=== PATIENT | female | born 1950 | race Caucasian/White ===

== ENCOUNTER 2019-04-08 02:06 | Outpatient (CLI) | payer OTHER, SELFPAY ==
--- NOTE | 2019-04-08 09:00 | DI.MAMMO_ITS ---
SYMPTOM/DIAGNOSIS: SCREENING Z12.31 MAMMOGRAMS: Mammograms were interpreted according to the usual protocol including computer analysis with CAD system, tomosynthesis and C view imaging. Comparison with prior examinations. Breast density category B. No suspicious masses or microcalcifications are seen. There is no definite evidence of malignancy. IMPRESSION: Category 1. Negative mammogram. Routine screening is recommended. Breast density category B. MQSA ASSESSMENT OF FINDINGS: Negative. Category 1. Patient will receive a letter notifying them of these results. BI-RADS category B. There are scattered areas of fibroglandular density.
== END 2019-04-08 02:26 ==
PROVIDERS: PCP Family Medicine; Visit Provider Family Medicine
DX: Z12.31 Encounter for screening mammogram for malignant neoplasm of breast (principal)
CPT/HCPCS: 77063; 77067

== ENCOUNTER 2021-06-04 01:41 | Outpatient (CLI) | payer OTHER, SELFPAY ==
--- NOTE | 2021-06-04 07:00 | DI.MAMMO_ITS ---
Exam(s) MAMMO SCREENING EXAM: MAMMO SCREENING CLINICAL HISTORY: screening,Z12.39 TECHNIQUE: Bilateral full field digital CC and MLO mammographic images were obtained with 3D tomosyn thesis and utilizing computer aided detection (CAD). COMPARISON: Available for comparison. FINDINGS: Masses/Architectural Distortion: None seen. Microcalcifications: No suspicious pleomorphic-type are seen. Skin Thickening/Nipple Retraction: None. IMPRESSION: 1. No significant interval change with no specific features of malignancy noted. 2. Unless there is more urgent need, screening mammography is recommended, as per [employer] guidelines. BI-RADS Category 1 - Negative Breast Density - Category B - Scattered areas of fibroglandular density Breast density category C or D implies that the patient has dense breast tissue. Dense breast tissue is very common and is not abnormal but dense breast tissue can make it harder to find cancer on a ma mmogram. Also, dense breast tissue may increase their breast cancer risk. This information about the result of the mammogram report was provided to the patient to raise their awareness. Use this report when you speak with the patient about their risks for breast cancer, which includes their family hist ory. At that time, you may recommend for more screening tests (Ultrasound or MRI) as they might be us eful based on their risk. A negative radiographic report should not delay biopsy if a dominant or clinically suspicious mass is present. Up to ten percent of cancers are not identified on mammography. A negative report may reinforce clinical impression. Adenosis and dense breasts may obscure an underlying neoplasm. False positive reports average 6 to 10%. Patient will receive a letter notifying them of these results.
== END 2021-06-04 02:01 ==
PROVIDERS: PCP Family Medicine; Visit Provider Family Medicine
DX: Z12.31 Encounter for screening mammogram for malignant neoplasm of breast (principal)
CPT/HCPCS: 77063; 77067

== ENCOUNTER 2022-09-05 00:11 | Outpatient (CLI) | payer MEDICARE, SELFPAY ==
--- NOTE | 2022-09-05 08:00 | DI.DEXA_ITS ---
Exam(s) XR DEXA BONE DENSITY W/WO KIKE EXAM: XR DEXA BONE DENSITY W/WO KIKE CLINICAL HISTORY: osteoporosis,M81.0 TECHNIQUE: [employer] C densitometer analysis of left hip, lumbar spine and left forearm. COMPARISON: 2004 through 2010 FINDINGS: Lateral view of the thoracic and lumbar spine shows exaggerated thoracic kyphosis. No definite compr ession fractures. Bone mineral density measurements of the lumbar spine correspond to a total T-score of -3.2, in the osteoporotic range. This represents a 11.8 percent decrease from 2010 and a 20.3 percent decrease co mpared with 2004. Bone mineral density measurements of the left hip correspond to a total T-score of -2.8. The femora l neck T-score is -2.9, in the osteoporotic range. This represents an 8.2 percent decrease compared to 2010 and a 13.5 percent decrease compared with 2004.. The left forearm bone mineral density measurements correspond to a T-score of the distal 3rd of -2.1 , in the osteopenic range. This represents a 12.3 percent decrease compared with 2010. The forearm was not analyzed per prior to that time. 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 Osteopenia of the forearm, also with decrease in density compared to prior.
== END 2022-09-05 00:31 ==
LOC: DI 00:11
PROVIDERS: PCP Family Medicine; Visit Provider Family Medicine
DX: M81.0 Age-related osteoporosis without current pathological fracture (principal); M85.88 Other specified disorders of bone density and structure, other site
CPT/HCPCS: 77080

== ENCOUNTER → 2023-07-02 02:02 | Outpatient (CLI) | payer MEDICARE, SELFPAY ==
--- NOTE | 2023-07-02 08:30 | DI.MAMMO_ITS ---
Exam(s) MAMMO SCREENING EXAM: MAMMO SCREENING CLINICAL HISTORY: screening,Z12.39 TECHNIQUE: Mammograms were interpreted according to the usual protocol including computer analysis w [employer] CAD system, tomosynthesis and C-view imaging. COMPARISON: 2014 through 2020 FINDINGS: The breasts are composed of scattered fibroglandular densities, Breast Density category B. No suspicious masses or suspicious microcalcifications are seen. No skin thickening or abnormal axillary lymph nodes are seen. There has been no significant change from prior exams. IMPRESSION: BI-RADS Category 1, Negative mammogram Yearly screening mammography is recommended. Breast Density - Category B, scattered fibroglandular densities. A negative radiographic report should not delay biopsy if a dominant or clinically suspicious mass is present. Up to ten percent of cancers are not identified on mammography. A negative report may reinforce clinical impression. Adenosis and dense breasts may obscure an underlying neoplasm. False positive reports average 6 to 10%. Patient will receive a letter notifying them of these results.
== END ==
PROVIDERS: PCP Family Medicine; Visit Provider Family Medicine
DX: Z12.31 Encounter for screening mammogram for malignant neoplasm of breast (principal)
CPT/HCPCS: 77063; 77067

== ENCOUNTER → 2024-03-22 00:52 | Outpatient (CLI) | payer MEDICARE, SELFPAY ==
--- NOTE | 2024-03-22 07:15 | DI.RAD_ITS ---
Exam(s) XR LUMBAR SPINE COMPLETE EXAM: XR LUMBAR SPINE COMPLETE CLINICAL HISTORY: LUMBAR PAIN, M54.50. TECHNIQUE: 2D digital imaging was performed. Five views. COMPARISON: CR XR DEXA BONE DENSITY W/WO KIKE from 09/05/2022 FINDINGS: BONES: No fracture or destructive lesion. Vertebral body heights are maintained. Sacrum obscured by stool and bowel gas. Facet hypertrophy identified greatest at L4-5 and L5-S1. Slight spondylolisthe sis at L4-5. DISKS: Severe narrowing L5-S1 disc space. Main disc spaces are maintained. ALIGNMENT: Slight spondylolisthesis at L4-5. Minimal scoliosis at thoracolumbar junction.. SOFT TISSUE: Normal. IMPRESSION: Degenerative changes greatest at L5-S1. DATA REPOSITORY: RADIATION DOSE DELIVERED:
--- NOTE | 2024-03-22 07:15 | DI.RAD_ITS ---
Exam(s) XR THORACIC SPINE COMPLETE EXAM: XR THORACIC SPINE COMPLETE CLINICAL HISTORY: LUMBAR AND THORACIC PAIN,M54.6. TECHNIQUE: 2D digital imaging was performed. Three views. COMPARISON: CR XR DEXA BONE DENSITY W/WO KIKE from 09/05/2022 CR XR LUMBAR SPINE COMPLETE from 03/22/2024 FINDINGS: BONES: Mild T11 compression fracture. This appears new when compared to prior DXA scan. The vertebr al bodies and posterior elements are unremarkable. ALIGNMENT: Increased thoracic kyphosis. DISKS: Narrowing of the anterior aspect of the discs and small endplate osteophytes. No significant scoliosis. SOFT TISSUE: Visualized lungs are clear. Heart size is normal. IMPRESSION: Mild T11 compression fracture. Thoracic kyphosis. DATA REPOSITORY: RADIATION DOSE DELIVERED:
== END ==
PROVIDERS: PCP Family Medicine; Visit Provider Family Medicine
DX: M54.50 Low back pain, unspecified (principal); M54.6 Pain in thoracic spine; S22.080A Wedge compression fracture of T11-T12 vertebra, initial encounter for closed fracture; M40.204 Unspecified kyphosis, thoracic region
CPT/HCPCS: 72072; 72110

== ENCOUNTER 2024-04-08 02:23 | Outpatient (CLI) | payer MEDICARE, SELFPAY ==
--- OUTSIDE RECORDS SUMMARY | 2024-04-08 02:46 | XMS_ITS | Encounter Summary ---
Author Organization [facility] Address [address] [place] [address] Care Team Providers Care Senior Manufacturing Supervisor Name Role Phone Unavailable Primary Care Provider Unavailabl e Encounter Details Date Type Department Care Team (Late st Contact Info) Description 12/30/2001 Results Only [facility] conversion [address] [place] [address] Vale Schofield MD [facility] [place] [address] Social History Tobacco Use Types Packs/Day Years Used Date Smoking Tobacco: Never Assessed Sex and Gender Information Value Date Recorded Sex Assigned at Not on file Gender Identity Not on file Sexual Orientation Not on file documented as of this encounter Plan of Treatment Not on file documented as of this encounter Procedures Procedure Name Priority Date/Time Associated Diagnosis Comments SURGICAL PATHOLOGY Routine 12/30/2001 0:00 EDT documented in this encounter Results * SURGICAL PATHOLOGY (12/30/2001 0:00 EDT) Pathology Report: SURGICAL PATHOLOGY REPORT Reports generated via electronic interface contain original data; however they are lacking the format of the original report. Caution should be taken when reading/interpreting unformatted reports. Name: ? TAINA LAND ? Accession #: ? [id number] ? : ? 1950 (Age: 51) ??F ? Collect Date: ? 12/30/2001 ? Location: ? [facility] ? Receive Date: ? 12/31/2001 ? Provider: VALE SCHOFIELD MD Copy to: COLTON GREEN MD ? Final Pathologic Diagnosis: A. ?Skin of hairline, right, curettage: 1. ? Seborrheic keratosis, inflamed. B. ?Skin of cheek, left, punch biopsy: ? 1. ?Seborrheic keratosis, pigmented. ??See comment. Comment: ? The punch biopsy from left cheek consists of a pigmented seborrheic keratosis that has associated lichenoid inflammation. ??The histologic features are suggestive of transition from a solar lentigo to seborrheic keratosis. There is no evidence of a melanocytic proliferation. ??(Dr. Vines)/dtl Microscopic Description: ? Sections from right hairline consist of multiple irregular fragments of skin. ??Orthohyperkeratosi s and focal parakeratosis thicken the stratum corneum. There is formation of horn pseudocysts. ??The epidermis is hyperplastic with acanthosis and papillomatosis. ??The keratinocytes have a basaloid appearance with squamous eddies in many areas. ??Within the dermis, there is a moderately dense lymphohistiocytic infiltrate. ??The infiltrate extends into the epidermis with concomitant vacuolar change and keratinocyte necrosis. Sections from left cheek consist of a punch biopsy of skin. ??The stratum corneum consists of a slightly thickened layer of compact orthokeratin. ??The epidermis is hyperplastic with elongate, thin, anastomosing rete ridges. ??Some of the rete are club shaped. ??The keratinocytes have abundant melanin pigment. The melanocytes are generally normal in number and distribution. ??There is prominent solar elastosis in the dermis. ??(Dr. Vines)/dtl Document reviewed and electronically signed by: Karen Vines MD Report ??Date: 01/03/2002 15:20 By the signature above, the attending physician certifies that he/she has personally conducted a gross and/or microscopic examination of the described specimens and rendered or confirmed the above diagnosis. Specimen(s) Received: A. ?R hairline curettage ??2 cm B. ?L cheek 3 mm punch bx Clinical History: ? A. Chivo K vs N. chivo, chivo keratosis. ??B. Fair skin, 5 yrs+ hx pigment change, 1.5 cm atrophic, sl. depressed area with three well-defined areas of increased pigment, R/O pigmented BCC, atypical nevus/freckle ? Gross Description: ? Received in formalin labelled Emery and #1 R are multiple pieces of yellow-white friable tissue which vary in size from 0.8 x 0.2 x 0.1 cm to 0.1 x 0.1 x 0.1 cm. ??The specimen is submitted entirely as (A). Received in formalin labelled Emery and #2 L cheek is a skin punch biopsy which measures 0.2 cm in diameter and 0.1 cm in thickness. ??The specimen is submitted entirely as (B). ??(Dr. Chaudhry)/[facility] End of Report [facility] 12/30/2001 12/31/2001 15: 21 EDT Vale Schofield MD PATHOLOGY ORDERABLES [facility] [address] [place] [address] documented in this encounter Visit Diagnoses Not on filedocumented in this encounter
--- OUTSIDE RECORDS SUMMARY | 2024-04-08 02:46 | XMS_ITS | Encounter Summary ---
Author Organization [facility] Address [address] [place] [address] Care Team Providers Care Court Attendant Name Role Phone Unavailable Primary Care Provider Unavailabl e Encounter Details Date Type Department Care Team (Late st Contact Info) Description 12/06/2007 Results Only [facility] conversion [address] [place] [address] Humera Chavez MD [address] [place] [phone] Social History Tobacco Use Types Packs/Day Years Used Date Smoking Tobacco: Never Assessed Sex and Gender Information Value Date Recorded Sex Assigned at Not on file Gender Identity Not on file Sexual Orientation Not on file documented as of this encounter Plan of Treatment Not on file documented as of this encounter Procedures Procedure Name Priority Date/Time Associated Diagnosis Comments HPV DETECTION, HIGH RISK TYPES Routine 12/06/2007 6:55 EDT CYTOPATHOLOGY Routine 12/06/2007 0:00 EDT documented in this encounter Results * HUMAN PAPILLOMA VIRUS DNA TEST (12/06/2007 6:55 EDT) Specimen Description Cervix, ThinPrep vial [facility] Result Negative for HPV types 16, 18, 31, 33, 35, 39, 45, 51, 52, 56, 58, 59, and 68. [facility] Report Status Final [id number] [facility] 12/06/2007 6:55 EDT 12/14/2007 6:55 EDT Humera Chavez MD MICROBIOLOGY - GENE RAL ORDERABLES [facility] [address] [place] [address] * CYTOPATHOLOGY (12/06/2007 0:00 EDT) Pathology Report: CYTOPATHOLOGY REPORT Reports generated via electronic interface contain original data; however they are lacking the format of the original report. Caution should be taken when reading/interpreti ng unformatted reports. Name: ? TAINA LAND ? Accession #: ? [id number] : ? 1950 (Age: 57) ??F ?Collect Date: ? 12/06/2007 Location: ? [facility] ? Receive Date: ? 12/08/2007 Provider: ?HUMERA CHAVEZ MD Copy to: ? Specimen/Source: ?ThinPrep Pap Test, Endocervix, processed on [employer] ThinPrep Imaging System, with manual evaluation Last Menstrual Period: ? Other: ? HPVDX - HPV testing requested regardless of diagnosis on current ThinPrep Pap test. ? SPECIMEN ADEQUACY ? Satisfactory for Evaluation - assessment of transformation zone component not applicable ( e.g. atrophy, vaginal sample, hysterectomy) GENERAL CATEGORIZATION ? Negative for Intraepithelial Lesion or Malignancy ? Document reviewed and electronically signed by: ? NABEEL New(ASCP) ? Report Date: ??12/13/2007 10:23 End of Report [facility] 12/06/2007 12/08/2007 Humera Chavez MD PATHOLOGY ORDERABLE S Performing Organization Address City/State/[facility] Co de Phone Number [facility] [address] [place] [address] documented in this encounter Visit Diagnoses Not on filedocumented in this encounter
--- OUTSIDE RECORDS SUMMARY | 2024-04-08 02:46 | XMS_ITS | Clinical Summary ---
Author Organization [facility] Address [address] [place] [address] Care Team Providers Care Community Service Director Name Role Phone Unknown, Provider Primary Care Provider [phone] Social History Tobacco Use Types Packs/Day Years Used Date Smoking Tobacco: Never Assessed Sex and Gender Information Value Date Recorded Sex Assigned at Not on file Gender Identity Not on file Sexual Orientation Not on file Plan of Treatment Health Maintenance Due Date Last Done Comments Hepatitis C Screen 1950 RSV Immunization ( o r 60+ Years) (1 - 1-dose 60+ series) 2008 Fall Risk Screening 2013 COVID-19 Vaccine ( season) 2023 Care Teams Community Service Director Relationship Specialty Start Date End Date Unknown, Provider, PCP - General 07/16/15
--- OUTSIDE RECORDS SUMMARY | 2024-04-08 02:46 | XMS_ITS | Clinical Summary ---
[place] [address] Care Team Providers Care Assistant Professor Of Economics Name Role Phone Humera Chavez MD Primary Care Provider [phone] Allergies No known active allergies Medications Medication Sig Dispensed Refills Start Date End Date Status CIS Free Text Med - [place]ap 12/16/2007 Active ascorbic acid (VITAMIN C) 500 mg tablet 12/16/2007 Active Cod Liver Oil Oil 12/16/2007 Active Social History Tobacco Use Types Packs/Day Years Used Date Smoking Tobacco: Never Assessed Sex and Gender Information Value Date Recorded Sex Assigned at Not on file Gender Identity Not on file Sexual Orientation Not on file Plan of Treatment Health Maintenance Due Date Last Done Comments CT Colonography 1950 Colonoscopy 1950 Colorectal Cancer Screening 1950 FIT DNA 1950 FIT 1950 Sigmoidoscopy (10 year) with FIT yearly 1950 Sigmoidoscopy 1950 Hepatitis C Screening 1966 Tdap adult 1967 Tetanus vaccine 1967 Zoster vaccine (1 of 2) 1998 Advance Directive 2003 Bone Density Scan 2013 Pneumoccocal Vaccine: 65+ (1 of 1 - PCV) 2013 Covid-19 Vaccine (1 - season) 2023 Influenza (Flu) vaccine (1 o f 1 - Influenza standard series) 05/08/2024 Care Teams Assistant Professor Of Economics Relationship Specialty Start Date End Date Humera Chavez MD [address] [place] [address] PCP - General 07/30/10
--- OUTSIDE RECORDS SUMMARY | 2024-04-08 02:46 | XMS_ITS | Encounter Summary ---
Author Organization [facility] Address [address] [place] [address] Care Team Providers Care Coil Winder Name Role Phone Unavailable Primary Care Provider Unavailabl e Encounter Details Date Type Department Care Team (Late st Contact Info) Description 12/03/2006 Results Only [facility] conversion [address] [place] [address] Humera Chavez MD [address] [place] [address] Social History Tobacco Use Types Packs/Day Years Used Date Smoking Tobacco: Never Assessed Sex and Gender Information Value Date Recorded Sex Assigned at Not on file Gender Identity Not on file Sexual Orientation Not on file documented as of this encounter Plan of Treatment Not on file documented as of this encounter Procedures Procedure Name Priority Date/Time Associated Diagnosis Comments CYTOPATHOLOGY Routine 12/03/2006 0:00 EDT documented in this encounter Results * CYTOPATHOLOGY (12/03/2006 0:00 EDT) Pathology Report: CYTOPATHOLOGY REPORT Reports generated via electronic interface contain original data; however they are lacking the format of the original report. Caution should be taken when reading/interpreti ng unformatted reports. Name: ? TAINA LAND ? Accession #: ? [id number] : ? 1950 (Age: 56) ??F ?Collect Date: ? 12/03/2006 Location: ? [facility] ? Receive Date: ? 12/07/2006 Provider: ?HUMERA CHAVEZ MD Copy to: ? Specimen/Source: ?ThinPrep Pap Test, Endocervix, processed on [employer] ThinPrep Imaging System, with manual evaluation Last Menstrual Period: ? 04/2001 Hormonal/Contracep tive Status: ? Yes Other: ? HPVA - HPV testing requested if ASC-US on the current ThinPrep Pap test. ? SPECIMEN ADEQUACY ? Satisfactory for Evaluation - assessment of transformation zone component not applicable ( e.g. atrophy, vaginal sample, hysterectomy) - scant squamous epithelial component GENERAL CATEGORIZATION ? Negative for Intraepithelial Lesion or Malignancy ? Document reviewed and electronically signed by: ? BREANNA Royal(ASCP) ? Report Date: ??12/09/2006 10:16 End of Report [facility] 12/03/2006 12/07/2006 Humera Chavez MD PATHOLOGY ORDERABLE S [facility] [address] [place] [address] documented in this encounter Visit Diagnoses Not on filedocumented in this encounter
--- OUTSIDE RECORDS SUMMARY | 2024-04-08 02:46 | XMS_ITS | Encounter Summary ---
Author Organization [facility] Address [address] [place] [address] Care Team Providers Care Detail Supervisor Name Role Phone Unavailable Primary Care Provider Unavailabl e Encounter Details Date Type Department Care Team (Late st Contact Info) Description 02/06/2011 Results Only [facility] [address] [place], [place] [id number] Humera Chavez MD [address] [place] [address] [address] [place] [address] Social History Tobacco Use Types Packs/Day Years Used Date Smoking Tobacco: Never Assessed Sex and Gender Information Value Date Recorded Sex Assigned at Not on file Gender Identity Not on file Sexual Orientation Not on file documented as of this encounter Plan of Treatment Not on file documented as of this encounter Procedures Procedure Name Priority Date/Time Associated Diagnosis Comments PAP TEST- RESULT ONLY Routine 02/06/2011 0:00 EDT documented in this encounter Results * PAP TEST- RESULT ONLY (02/06/2011 0:00 EDT) Pathology Report: CYTOPATHOLOGY REPORT ? Reports generated via electronic interface contain original data; ? however they are lacking the format of the original report. ? Caution should be taken when reading/interpreti ng unformatted reports. ? Name: ? NATHAN, TAINA ? Accession #: ? [id number] ? : ? 1950 (Age: 60) ??F ?Collect Date: ? 02/06/2011 ? Location: ? [facility] ? Receive Date: ? 02/07/2011 ? Provider: HUMERA M DOBBERTIN MD ? Copy to: ? Final Report ? SPECIMEN ADEQUACY ? Satisfactory for Evaluation ? - assessment of transformation zone component not applicable ( e.g. atrophy, ? vaginal sample, hysterectomy) ? GENERAL CATEGORIZATION ? Negative for Intraepithelial Lesion or Malignancy ? Menstural/Pregnanc y Status: ??Post Menopausal ? Specimen/Source: ??Pap Test, Endocervix, ThinPrep Imaging System with manual ? evaluation ? Document reviewed and electronically signed by: ? Kendra Tarango, SCT(ASCP) ? Report ??Date: 02/13/2011 14:48 ? HPV with Pap Test ? Date Ordered: ? 02/13/2011 ? Status: ?? Signed Out ?Date Complete: ? 02/14/2011 ? By: ??System Interface ? Date Reported: ? 02/14/2011 ? Interpretation ? RESULT: Quantity not sufficient. ? Credit Issued ? Comments ? Document reviewed and electronically signed by: ? System Interface ? Report date: 02/14/2011 ? By the signature above, the attending physician certifies that he/she has ? personally conducted a gross and/or microscopic examination of the described ? specimens and rendered or confirmed the above diagnosis. ? End of Report ? [facility] 02/06/2011 02/07/2011 Humera Chavez MD PATHOLOGY ORDERABLE S Performing Organization Address City/State/[facility] Co de Phone Number [facility] [address] [place] [address] documented in this encounter Visit Diagnoses Not on filedocumented in this encounter
--- OUTSIDE RECORDS SUMMARY | 2024-04-08 02:46 | XMS_ITS | Referral Summary ---
Author Organization [facility] Address [address] [place] [address] Care Team Providers Care Medicaid Analyst Name Role Phone Unknown, Provider Primary Care Provider [phone] Social History Tobacco Use Types Packs/Day Years Used Date Smoking Tobacco: Never Assessed Sex and Gender Information Value Date Recorded Sex Assigned at Not on file Gender Identity Not on file Sexual Orientation Not on file Plan of Treatment Not on file Care Teams Medicaid Analyst Relationship Specialty Start Date End Date Unknown, Provider, PCP - General 07/16/15
--- OUTSIDE RECORDS SUMMARY | 2024-04-08 02:46 | XMS_ITS | Encounter Summary ---
Author Organization Formerly [facility], 1928–1983 Address [facility] [place] [address] Care Team Providers Care Hobber Name Role Phone Humera Chavez MD Primary Care Provider Encounter Details Date Type Department Care Team (Late st Contact Info) Description 12/16/2007 Orders Only Dermatology at [address] [place] [id number] Hong Bradley MD [facility] [place] [address] Social History Tobacco Use Types Packs/Day Years Used Date Smoking Tobacco: Never Assessed Sex and Gender Information Value Date Recorded Sex Assigned at Not on file Gender Identity Not on file Sexual Orientation Not on file documented as of this encounter Plan of Treatment Not on file documented as of this encounter Procedures Procedure Name Priority Date/Time Associated Diagnosis Comments SURGICAL PATHOLOGY REPORT Routine 12/16/2007 4:04 PM EDT documented in this encounter Results * Surgical Pathology Report (12/16/2007 4:04 PM EDT) Surgical Pathology Report [id number] ? Location: 4M The signing pathologist has (i) examined the relevant preparation(s) for the specimen(s) and (ii) rendered or confirmed the diagnosis(es). . ?Pathology Surgical Pathology Final Report Clinical Information Specimen Submitted: A - Skin L Malar: shave Clinical History: Recurrence of dark lesion L cheek Clinical Diagnosis: Rich with inflammation vs dysplastic nevus Gross Description Labeled/Fixative : ? Labeled with the patient's name and medical record ?number, formalin. Qty/Size/Weight: ?Single variegated, yellow to chappell-brown, granular, and ?focally lobulated skin shave, 0.5 x 0.3 cm. ?Eccentrically there is a 0.15-cm focus of ?discoloration. Sections/Process ing: ??Bisected. ??(T1) aje/SHB Microscopic Description Slides reviewed, microscopic description not recorded. Diagnosis Left malar area, shave biopsy: ?? Fragment of keratin with a scant portion of superficial epidermis (see Comment). CR-0 12/17/07 JLK 12/18/07 Verified by: ? Tu Pace MD ?Dermatopatholo gist ?(Electronic Signature) The attending pathologist whose signature appears on this report has reviewed all diagnostic slides and has edited the gross and/or microscopic portion of the report in rendering the final pathologic diagnosis. Comment Only a scant portion of epidermis is available for evaluation. As such, a more specific diagnosis cannot be made. Re-biopsy may be considered if clinically indicated. ??Multiple step levels were reviewed. MAKAYLA FULLERIUM 12/16/2007 4:04 PM EDT Hong Bradley MD PATHOLOGY/CYTOLOGY ORDERABLES MAKAYLA DODGE documented in this encounter Visit Diagnoses Not on filedocumented in this encounter Care Teams Hobber Relationship Specialty Start Date End Date Humera Chavez MD [address] [place] [address] [address] [place] [address] PCP - General 07/30/10 documented as of this encounter
--- OUTSIDE RECORDS SUMMARY | 2024-04-08 02:46 | XMS_ITS | Encounter Summary ---
Author Organization [facility] Address [address] [place] [address] Care Team Providers Care Cat Skinner Name Role Phone Unknown, Provider Primary Care Provider Encounter Details Date Type Department Care Team (Late st Contact Info) Description 01/14/2016 Results Only [facility]- [facility] [phone] Humera Chavez MD [address] [place] [id number] Social History Tobacco Use Types Packs/Day Years [...] Diagnosis Comments PAP TEST- RESULT ONLY Routine 01/14/2016 0:00 EDT documented in this encounter Results * PAP TEST- RESULT ONLY (01/14/2016 0:00 EDT) Pathology Report: CYTOPATHOLOGY REPORT Reports generated via electronic interface contain original data; however they are lacking the format of the original report. Caution should be taken when reading/interpreti ng unformatted reports. Name: ? TAINA LAND ? Accession #: ? [id number] ? : ? 1950 (Age: 65) ??F ?Collect Date: ? 01/14/2016 ? Location: ? [facility] ? Receive Date: ? 01/15/2016 ? Provider: HUMERA CHAVEZ MD Copy to: ? Final Report SPECIMEN ADEQUACY ? Satisfactory for Evaluation - assessment of transformation zone component not applicable ( e.g. atrophy, vaginal sample, hysterectomy) GENERAL CATEGORIZATION ? Negative for Intraepithelial Lesion or Malignancy ?? Menstrual/Pregnanc y Status: ??Post Menopausal Hormonal/Contracep tive status: None Other: Promotions Manager Clinical/Treatment Hx - None Specimen/Source: ??Pap Test, Cervix/Endocervix, ThinPrep Imaging System with manual evaluation Document reviewed and electronically signed by: ? Polly Shah, BREANNA(ASCP) ? Report ??Date: 01/24/2016 12:53 HPV with Pap Test ? Date Ordered: ? 01/24/2016 ? Status: ?? Signed Out ?Date Complete: ? 01/28/2016 ? By: ??System Interface ? Date Reported: ? 01/28/2016 ? Interpretation RESULT: Negative for HPV. No E6 or E7 mRNA is detected from HPV types 16,18,31,33,35, 39,45,51,52,56,58, 59,66, and 68 by mis manager mediated amplification. Comments Document reviewed and electronically signed by: ? System Interface ? Report date: 01/28/2016 By the signature above, the attending physician certifies that he/she has personally conducted a gross and/or microscopic examination of the described specimens and rendered or confirmed the above diagnosis. End of Report [facility] 01/14/2016 01/15/2016 Humera Chavez MD PATHOLOGY ORDERABLE S [facility] [address] [place] [id number] documented in this encounter Visit Diagnoses Not on filedocumented in this encounter Care Teams Cat Skinner Relationship Specialty Start Date End Date Unknown, Provider, PCP - General 07/16/15 documented as of this encounter
[2024-04-08 12:58] LABS: ALT 24 U/L (14-59); AST 18 U/L (15-37); Albumin 3.4 g/dL (3.4-5.0); Alkaline Phosphatase 86 U/L (46-116); BUN 20 mg/dL (7-18); Bilirubin, Total 0.51 mg/dL (0.2-1.0); CREATININE 0.8 mg/dL (0.55-1.02); Calcium 8.9 mg/dL (8.5-10.1); Chloride 102 mmol/L (98-107); Estimated GFR 76.79 (mL/min/1.73m2); Glucose 89 mg/dL (74-106); Potassium 3.9 mmol/L (3.5-5.1); Sodium 139 mmol/L (136-145); TSH (W/Ref FT4) 4.09 uIU/mL (0.36-3.74); Total Protein 7.5 g/dL (6.4-8.2)
[2024-04-08 13:22] LABS: FREE T4 0.93 ng/dL (0.76-1.46); PHOSPHORUS 4.2 mg/dL (2.6-4.7)
[2024-04-08 18:25] LABS: Parathyroid Hormone,Intact 42 pg/mL (19-88)
[2024-04-11 13:02] LABS: Albumin 57.6 % (55.8-66.1); Albumin g/dL 4.1 g/dL (3.6-5.2); Total Protein 7.1 g/dL (6.3-8.2)
== END 2024-04-08 02:24 | disposition home or self-care (01) ==
LOC: LOS 02:24
PROVIDERS: PCP Family Medicine; Visit Provider Family Medicine
DX: M81.0 Age-related osteoporosis without current pathological fracture (principal); N18.9 Chronic kidney disease, unspecified; E03.9 Hypothyroidism, unspecified; S32.000A Wedge compression fracture of unspecified lumbar vertebra, initial encounter for closed fracture
CPT/HCPCS: 36415; 80053; 82306; 83970; 84100; 84165; 84439; 84443

== ENCOUNTER 2024-04-09 09:36 | Outpatient (REF) | payer MEDICARE, SELFPAY ==
[2024-04-10 09:42] LABS: Calcium Urine 5.2 mg/dL (See Note); Calcium Urine 24 hr 75 mg/24hr (100-300); Timed Urine Volume 1450 mL
[2024-04-10 09:45] LABS: Magnesium Random Urine 5.1 mg/dL (See Note); Timed Urine Volume 1450 mL
== END 2024-04-09 09:37 | disposition home or self-care (01) ==
LOC: LBN 09:36
PROVIDERS: PCP Family Medicine; Visit Provider Family Medicine
DX: M81.0 Age-related osteoporosis without current pathological fracture (principal); E03.9 Hypothyroidism, unspecified; N18.9 Chronic kidney disease, unspecified
CPT/HCPCS: 83735; 81050; 82340

== ENCOUNTER 2024-05-13 00:20 | Outpatient (CLI) | payer MEDICARE, SELFPAY ==
--- NOTE | 2024-05-13 08:30 | DI.RAD_ITS ---
Exam(s) XR HIP LT COMPLETE AP PELVIS EXAM: XR HIP LT COMPLETE AP PELVIS CLINICAL HISTORY: left hip pain,m25.552. TECHNIQUE: 2D digital imaging was performed of the left hip. Two views were obtained. AP pelvis an d lateral left hip views were obtained. COMPARISON: No exams were available for comparison FINDINGS: BONES: No acute fracture is present. No bony destructive lesion is seen. JOINTS: No dislocation present. There is moderate narrowing of the superior joint space of the left h ip. SOFT TISSUE: Normal. IMPRESSION: Moderate degenerative changes seen in the left hip. DATA REPOSITORY: RADIATION DOSE DELIVERED:
== END 2024-05-13 00:40 ==
LOC: DI 00:20
PROVIDERS: PCP Family Medicine; Visit Provider Family Medicine
DX: M16.12 Unilateral primary osteoarthritis, left hip (principal)
CPT/HCPCS: 73502

== ENCOUNTER → 2024-07-28 14:24 | Outpatient (BNVA) | payer MEDICARE, SELFPAY | PROVIDERS: PCP Family Medicine; Referring Provider Family Medicine; Visit Provider Student in an Organized Health Care Education/Training Program | DX: M16.12 Unilateral primary osteoarthritis, left hip (principal) | CPT/HCPCS: 99203 ==

== ENCOUNTER 2024-08-10 07:33 | Outpatient (CLI) | payer MEDICARE, SELFPAY ==
--- NOTE | 2024-08-10 07:15 | DI.CT_ITS ---
Exam(s) CT LOWER EXTREMITY LT WO EXAM: CT LOWER EXTREMITY LT WO CLINICAL HISTORY: left hip DJD w osteoporosis, lt hip pain,m25.552,m81.0. TECHNIQUE: Imaging Protocol: Axial computed tomography images with coronal and sagittal reformatted images were created and reviewed. CONTRAST MATERIAL: Noncontrast COMPARISON: CR XR HIP LT COMPLETE AP PELVIS from 05/13/2024 FINDINGS: Bones: There is no evidence of fracture or dislocation. No cellulitic or osteomyelitic changes are identified. No lytic or sclerotic lesions are identified. Arm the bones appear demineralized. Joints: There is severe narrowing of the superior hip joint space, with a [id number] appearance. There is an area of slight flattening of the superior femoral head and small subchondral cysts on bot h sides of the joint. There is significant spurring of the superior acetabulum. A joint effusion i s present. No joint space loose bodies are visible. Soft Tissues: Normal. Intrapelvic contents: Large quantity of stool is noted in the visualized portions of the sigmoid colo n. IMPRESSION: Severe degenerative changes of the superior left hip joint space. There is slight flattening of the superior femoral head and subchondral cyst formation. Joint effusion. RADIATION DOSE DELIVERED: 220.9mGy.cm Total DLP DATA REPOSITORY: All CT scans at this facility are submitted to the National Radiology Data Registry (NRDR) Dose Index Registry (DIR) with the [employer] ([employer]). RADIATION OPTIMIZATION: All CT scans at this facility use at least one of these dose optimization te chniques: automated exposure control; mA and/or kV adjustment per patient size (includes targeted exa ms where dose is matched to clinical indication); or iterative reconstruction.
== END 2024-08-10 07:53 ==
LOC: DI 07:34
PROVIDERS: PCP Family Medicine; Visit Provider Family Medicine
DX: M16.11 Unilateral primary osteoarthritis, right hip (principal)
CPT/HCPCS: 73700

== ENCOUNTER 2024-09-22 00:11 | Outpatient (CLI) | payer MEDICARE, SELFPAY ==
--- NOTE | 2024-09-22 07:45 | DI.DEXA_ITS ---
Exam(s) XR DEXA BONE DENSITY W/WO KIKE EXAM: XR DEXA BONE DENSITY W/WO KIKE CLINICAL HISTORY: post menopausal,SCREENING FOR OSTEOPOROSIS,Z78.0 TECHNIQUE: [employer] C densitometer analysis of left hip, lumbar spine and left forearm. Lat eral survey image of the thoracic and lumbar spine. COMPARISON: CR XR DEXA BONE DENSITY 2004 through 2021 CR XR THORACIC SPINE COMPLETE from 03/22/2024 FINDINGS: Lateral view of the thoracic and lumbar spine shows mild T11 compression fracture, stable from prior plain films. Accentuation of the thoracic kyphosis. Bone mineral density measurements of the lumbar spine correspond to a total T-score of -3.3, in the osteoporotic range. This is not significantly changed from 2021 represents a 22 percent decrease fro m 2004. Bone mineral density measurements of the left hip correspond to a total T-score of -3.5. This repre sents a 12.8 percent decrease when compared with 2021 and 24.6 percent decrease compared with 2004. The femoral neck T-score is -2.8, in the osteoporotic range. Theleft forearm bone mineral density measurements correspond to a T-score of the distal 3rd of -1.9, in the osteopenic range. This is not significantly changed from 2021 but represents a 10.7 percent d ecrease compared with 2010. . IMPRESSION: Osteoporosis of the spine and hip. Osteopenia of the forearm.
== END 2024-09-22 00:31 ==
LOC: DI 00:11
PROVIDERS: PCP Family Medicine; Visit Provider Family Medicine
DX: Z13.820 Encounter for screening for osteoporosis (principal); Z78.0 Asymptomatic menopausal state
CPT/HCPCS: 77080